=== PATIENT | female | born 1995 | race Caucasian/White ===

== ENCOUNTER 2017-03-23 01:06 | Emergency (ER) | payer OTHER ==
[2017-03-23 02:25] LABS: PLATELET COUNT 210 x10^3mcL (130-400); RED CELL DISTRIBUTION WIDTH 12.7 % (11.5-14.5)
[2017-03-23 02:27] LABS: BASOPHIL % 2.5 % (0-2)
[2017-03-23 02:30] LABS: CALCIUM 8.2 mg/dL (8.5-10.1); CARBON DIOXIDE 25.5 mmol/L (21-32); CHLORIDE SERUM 104 mmol/L (98-107); CREATININE SERUM 0.8 mg/dL (0.6-1.0); GFR1 > 60 mL/min; GLUCOSE SERUM 94 mg/dL (74-106); POTASSIUM SERUM 3.5 mmol/L (3.5-5.1); SODIUM SERUM 139 mmol/L (136-145)
[2017-03-23 02:32] LABS: UA SPECIFIC GRAVITY 1.025 (1.005-1.035); microscopic required? YES; urine erythrocyte TRACE (NEGATIVE)
[2017-03-23 02:35] LABS: ALBUMIN 3.7 g/dL (3.4-5.0); ALKALINE PHOSPHATASE 46 U/L (46-116); ALT/SGPT 21 U/L (14-59); AST/SGOT 18 U/L (15-37); BILIRUBIN TOTAL 0.54 mg/dL (0.20-1.00); LIPASE 166 IU/L (73-393); TOTAL PROTEIN, SERUM 7.1 g/dL (6.4-8.2)
[2017-03-23 02:44] LABS: AMPHETAMINE QUAL UR NONE DETECTED (NEG <=1000)
[2017-03-23 04:00] VITALS: BP 101/61
== END 2017-03-23 04:00 | disposition home or self-care (01) ==
LOC: ED 01:06
PROVIDERS: Emergency Medicine
DX: R10.13 Epigastric pain (principal); R11.10 Vomiting, unspecified
CPT/HCPCS: J1885; J2405; J7030

== ENCOUNTER 2017-12-21 10:42 | Emergency (ER) | payer SELFPAY ==
[~2017-12-21] VITALS: Ht 160 cm; Wt 61.7 kg
[2017-12-21 10:53] VITALS: BP 135/92; Ht 160 cm; Wt 61.7 kg
== END 2017-12-21 12:13 | disposition home or self-care (01) ==
LOC: ED 10:42
DX: R05 Cough (principal); R51 Headache; R03.0 Elevated blood-pressure reading, without diagnosis of hypertension
CPT/HCPCS: J7613

== ENCOUNTER 2017-12-27 13:58 | Emergency (ER) | payer MEDICAID ==
[~2017-12-27] VITALS: Ht 160 cm; Wt 63.0 kg
[2017-12-27 14:03] VITALS: Ht 160 cm; Wt 63.0 kg
[2017-12-27 16:02] VITALS: BP 115/68
== END 2017-12-27 16:02 | disposition home or self-care (01) ==
LOC: ED 13:58
DX: S29.011A Strain of muscle and tendon of front wall of thorax, initial encounter (principal); R10.9 Unspecified abdominal pain; X58.XXXA Exposure to other specified factors, initial encounter; Y93.89 Activity, other specified; Y92.89 Other specified places as the place of occurrence of the external cause; Y99.8 Other external cause status
CPT/HCPCS: J1885

== ENCOUNTER 2018-02-21 09:32 | Emergency (ER) | payer MEDICAID ==
[~2018-02-21] VITALS: Ht 160 cm; Wt 63.5 kg
[2018-02-21 09:44] VITALS: Ht 160 cm; Wt 63.5 kg
[2018-02-21 12:07] VITALS: BP 100/51
== END 2018-02-21 13:48 | disposition home or self-care (01) ==
LOC: ED 09:32
DX: S09.8XXA Other specified injuries of head, initial encounter (principal); M54.2 Cervicalgia; V43.52XA Car driver injured in collision with other type car in traffic accident, initial encounter; Y93.I9 Activity, other involving external motion; Y92.488 Other paved roadways as the place of occurrence of the external cause; Y99.8 Other external cause status

== ENCOUNTER 2018-10-13 11:13 | Emergency (ER) | payer SELFPAY ==
[~2018-10-13] VITALS: Ht 160 cm; Wt 60.8 kg
[2018-10-13 12:03] VITALS: BP 108/72; Ht 160 cm; Wt 60.8 kg
== END 2018-10-13 13:38 | disposition home or self-care (01) ==
LOC: ED 11:13
DX: H66.91 Otitis media, unspecified, right ear (principal)